=== PATIENT | male | born 2000 | race Caucasian/White ===

== ENCOUNTER 2024-01-04 07:55 | Emergency (ER) | payer MEDICAID ==
[~2024-01-04] VITALS: Ht 175.3 cm; Wt 68.1 kg
[2024-01-04 08:00] VITALS: BP 118/76; PULSE 71
[2024-01-04 08:43] VITALS: RESP 18; O2SAT 96
[2024-01-04] MEDS ORDERED: CLINDAMYCIN 600MG IV 50 ML IV ONE (09:00)
[2024-01-04] MEDS ORDERED: SODIUM CHLORIDE 0.9% 1,000 ML IV ONE ×2 (09:00)
[2024-01-04] MEDS ORDERED: cefTRIAXone 1GM/50ML D5W 50 ML IV ONE (09:00)
== END 2024-01-04 09:13 | disposition left against medical advice (07) ==
LOC: EDBD 07:55 → EDUNIT# 07:55 → ER 07:55
DX: L03.116 Cellulitis of left lower limb (principal); F17.210 Nicotine dependence, cigarettes, uncomplicated; F12.10 Cannabis abuse, uncomplicated; F15.10 Other stimulant abuse, uncomplicated; Z88.6 Allergy status to analgesic agent; Z91.040 Latex allergy status